=== PATIENT | female | born 1955 | race Caucasian/White ===

== ENCOUNTER 2020-04-25 00:35 | Emergency (ER) | payer MEDICARE, OTHER ==
[2020-04-25] MEDS ORDERED: Metoclopramide HCl 10 MG/2 ML VIAL ONE (01:18)
[2020-04-25] MEDS ORDERED: diphenhydrAMINE 50 MG/ML VIAL ONE (01:18)
[2020-04-25] MEDS ORDERED: Acetaminophen 500 MG TAB ONE (01:18)
[2020-04-25 01:29] LABS: #Eosinphils 0.2 thou/uL (0.0-0.7); #Lymphocytes 0.8 thou/uL (1.20-3.40); #Monocytes 0.3 thou/uL (0.11-0.59); %Basophils 0.1 % (0.0-1.0); %Eosinophils 3.3 % (0.0-10.0); %Lymphocytes 14.6 % (21.0-51.0); %Monocytes 4.9 % (0.0-10.0); %Neutrophils 77.1 % (42.0-75.0); Hemoglobin 13.4 g/dL (12.0-16.0); Mean Corpuscular HGB CONC 32.7 g/dL (32.0-36.0); Mean Corpuscular Hemoglobin 31.4 pg (27.0-31.0); Mean Corpuscular Volume 96.1 fL (78.0-98.0); Mean Platelet Volume 7.8 fL (7.4-10.4); Platelet Count 177 thou/uL (130-400); RBC Distribution Width 11.9 % (11.5-14.5); Red Blood Cell (RBC) Count 4.26 mill/uL (4.20-5.40); White Blood Cell (WBC) Count 5.2 thou/uL (4.8-10.8)
[2020-04-25 01:48] LABS: ALT (SGPT) 12 U/L (8-55); AST (SGOT) 14 U/L (5-34); Albumin 3.6 g/dL (3.4-4.8); Alkaline Phosphatase 52 U/L (40-110); Anion Gap 12 mmol/L (10-20); BUN (Urea Nitrogen) 29 mg/dL (9.8-20.1); Bilirubin, Total 0.2 mg/dL (0.2-1.2); Calc. Creatinine Clearance 0 mL/min (70-130); Carbon Dioxide 23 mmol/L (23-31); Chloride 105 mmol/L (98-107); Estimated GFR-MDRD 67; Globulin 3.2 g/dL (2.4-3.5); Glucose 94 mg/dL (80-115); Potassium 4.2 mmol/L (3.5-5.1); Protein, Total 6.8 g/dL (6.0-8.3); Sodium 136 mmol/L (136-145)
[2020-04-25 02:11] LABS: Bacteria/HPF 1+ HPF (None Seen); Bilirubin Negative (Negative); Blood, Urine 1+ (Negative); Clarity Clear (Clear); Glucose, Urine (Dipstick) Normal (Negative); Ketone, Urine Negative (Negative); Leukocyte 25 Leu/uL (Negative); Nitrite Negative (Negative); Protein, Urine (Dipstick) Negative (Neg-Trace); RBC/HPF 0-3 HPF (0-3); Specific Gravity, Urine 1.023 (1.002-1.036); Squamous Epithelial 21-50 HPF (0-3); Urobilinogen Normal mg/dL (Less than 2); WBC/HPF 0-3 HPF (0-3)
[2020-04-25] MEDS ORDERED: Dexamethasone 10 MG/ML VIAL ONE (02:41)
--- NOTE | 2020-04-25 07:34 | RAD ---
CHEST 1 VIEW: Date: 04/25/2020 INDICATION: History of COVID-positive, coughing up blood, nausea and vomiting. COMPARISON: Prior exam dated 04/16/2020. IMPRESSION: No definite consolidation, pleural effusion, or pneumothorax evident. Low lung volumes accentuate the cardiac silhouette. No pleural effusion or pneumothorax evident. No acute osseous abnormalities note d. POS: BH
== END 2020-04-25 02:48 | disposition home or self-care (01) ==
LOC: ERS 00:35
DX: U07.1 COVID-19 (principal); K21.9 Gastro-esophageal reflux disease without esophagitis; E78.00 Pure hypercholesterolemia, unspecified; E78.5 Hyperlipidemia, unspecified; I10 Essential (primary) hypertension; F32.9 Major depressive disorder, single episode, unspecified; Z79.899 Other long term (current) drug therapy
CPT/HCPCS: 36415; 71045; 80053; 81003; 81015; 83605; 84484; 85025; 85379; 86140; 93005; 94760; 96365; 96375; J1100; J1200; J2765

== ENCOUNTER 2020-04-27 14:19 | Observation (INO) | payer MEDICARE, OTHER ==
[~2020-04-27 14:19] MED LIST: Iopamidol-370 76% 500 ML 1 ML ONE
[2020-04-27 15:00] LABS: #Eosinphils 0.1 thou/uL (0.0-0.7); #Lymphocytes 0.7 thou/uL (1.20-3.40); #Monocytes 0.4 thou/uL (0.11-0.59); #Neutrophils 5.6 thou/uL (1.40-6.50); %Basophils 0.5 % (0.0-1.0); %Lymphocytes 10.3 % (21.0-51.0); %Neutrophils 82.3 % (42.0-75.0); Hemoglobin 13.7 g/dL (12.0-16.0); Mean Corpuscular HGB CONC 32.4 g/dL (32.0-36.0); Mean Corpuscular Hemoglobin 30.9 pg (27.0-31.0); Mean Corpuscular Volume 95.4 fL (78.0-98.0); Mean Platelet Volume 7.8 fL (7.4-10.4); Platelet Count 182 thou/uL (130-400); Red Blood Cell (RBC) Count 4.43 mill/uL (4.20-5.40); White Blood Cell (WBC) Count 6.8 thou/uL (4.8-10.8)
[2020-04-27 15:23] LABS: ALT (SGPT) 15 U/L (8-55); AST (SGOT) 15 U/L (5-34); Albumin 3.7 g/dL (3.4-4.8); Alkaline Phosphatase 62 U/L (40-110); Anion Gap 12 mmol/L (10-20); BUN (Urea Nitrogen) 20 mg/dL (9.8-20.1); Bilirubin, Total 0.5 mg/dL (0.2-1.2); Calc. Creatinine Clearance 0 mL/min (70-130); Calcium 8.9 mg/dL (7.8-10.44); Carbon Dioxide 28 mmol/L (23-31); Chloride 102 mmol/L (98-107); Estimated GFR-MDRD 67; Globulin 3.6 g/dL (2.4-3.5); Glucose 97 mg/dL (80-115); Potassium 4.2 mmol/L (3.5-5.1); Protein, Total 7.3 g/dL (6.0-8.3); Sodium 138 mmol/L (136-145)
[2020-04-27] MEDS ORDERED: Ondansetron PF 4 MG/2 ML Vial ONE (15:29)
--- NOTE | 2020-04-27 15:29 | RAD ---
XR Chest 1 View Portable History: Vomiting and shortness of breath. Code due to symptoms Comparison: Radiograph 2 days prior Findings: Multifocal airspace opacities throughout the lungs. No pneumothorax. No effusion. Heart siz e upper limits of normal. Impression: Commonly reported imaging findings of COVID-19 pneumonia.
--- NOTE | 2020-04-27 16:19 | CT ---
CTA Angio Chest W WO Con History: Dyspnea Comparison: Radiograph same day Findings: CT angiogram of the chest was performed after the intravenous administration of contrast. 3 -D rendering provided. No proximal segmental pulmonary arterial filling defect. No pericardial effusion. Moderate-sized slid ing hiatal hernia. Heart size is enlarged. Extensive perihilar and peripheral airspace opacities which are combination of groundglass and consol idation. No pneumothorax. No effusion. Aortic contour is nonaneurysmal. Impression: 1. Commonly reported imaging findings of COVID-19 pneumonia. 2. No pulmonary embolism. 3. Mild cardiomegaly. 4. Moderate sliding hiatal hernia.
[2020-04-27] MEDS ORDERED: Acetaminophen 500 MG TAB ONE (18:31)
[2020-04-27] MEDS ORDERED: Aspirin Chewable 81 MG TAB ONE (18:31)
[2020-04-27 19:05] LABS: Troponin I 0.016 ng/mL (< 0.028)
--- NOTE | 2020-04-27 19:19 | PDOC.FPRHP ---
- History of Present Illness Chief Complaint: SOB History of Present Illness: This is a 64 yo female with a pmh of HTN and depression who presents to the ER for the second time this week with a cc of SOB, nausea, and vomiting. She reports she first began having symptoms on 04/12 and was diagnosed at that time. Since then, she reports that she has had progressive worsening SOB, nausea , and vomiting. She is unable to quantify her vomiting, but it has been minimal. She also reports decreased PO intake. She states she has a non- productive cough. She states her just recovered from COVID and an empyema. At baseline, she is independent, walks on her own, and is quite active. ED Course: Tylenol 1g NS 2L bolus Aspirin 324mg Zofran 4mg - Allergies/Adverse Reactions Allergies Allergy/AdvReac Type Severity Reaction Status Date / Time No Known Allergies Allergy Verified 12/18/19 21:01 - Home Medications Medication Instructions Recorded Confirmed Type Albuterol Sulfate 1 puff INH Q4H PRN 04/27/20 04/27/20 History Aspirin 325 mg PO DAILY 04/27/20 04/27/20 History Benzonatate 1 tab PO TID PRN 04/27/20 04/27/20 History Doxazosin Mesylate [Cardura] 4 mg PO DAILY 04/27/20 04/27/20 History Krill/York-3/DHA/EPA/Lipids 350 mg PO DAILY 04/27/20 04/27/20 History [Krill Oil 350 mg Softgel] Sertraline HCl 150 mg PO DAILY 04/27/20 04/27/20 History Simvastatin 20 mg PO HS 04/27/20 04/27/20 History - History PMHx:HTN, depression, HLD, GERD, OA PSHx: Bilateral cataract, Bilateral TKR, right bonionectomy FHx: non contributory Social: Denies DRU - Review of Systems General: reports: fever/chills, weight/appetite/sleep changes, fatigue Eyes: denies: eye pain, vision changes ENT: denies: nasal congestion, rhinorrhea Respiratory: reports: cough, shortness of breath. denies: congestion, exercise intolerance Cardiovascular: reports: chest pain (worse with). denies: palpitation, edema, paroxysmal nocturnal dyspnea Gastrointestinal: reports: nausea, vomiting, abdominal pain (mild). denies: diarrhea, constipation Genitourinary: denies: incontinence, dysuria Skin: denies: rashes, lesions, jaundice Musculoskeletal: denies: pain, tenderness, stiffness Neurological: denies: numbness, syncope Psychological: reports: anxiety, depression - Vital signs BP: 108/64 HR: 59 RR: 22 Tmax: 100.0 Pox: 97% on ra Wt: 104 kg - Physical Exam Constitutional: NAD, awake, alert and oriented, well developed HEENT: PERRLA, EOMI, grossly normal vision, grossly normal hearing, MMM Neck: FROM, trachea midline Chest: no-tender to palpation Heart: RRR, normal S1/S2, pulses present, no edema, other (2/6 systolic murmur) Lungs: no respiratory distress, other (fair air movement, diffuse rhonci) Abdomen: soft, non-tender, bowel sounds present Musculoskeletal: normal structure, normal tone, ROM grossly normal Neurological: no focal deficit, CN II-XII intact Skin: good turgor, capillary refill <2 seconds Heme/Lymphatic: no unusual bruising or bleeding Psychiatric: normal mood and affect, good judgment and insight FMR H&P: Results - Labs Result Diagrams: 04/28/20 04:58 04/28/20 04:58 Lab results: WBC 6.8 thou/uL (4.8-10.8) 04/27/20 14:49 Hgb 13.7 g/dL (12.0-16.0) 04/27/20 14:49 Hct 42.3 % (36.0-47.0) 04/27/20 14:49 MCV 95.4 fL (78.0-98.0) 04/27/20 14:49 Plt Count 182 thou/uL (130-400) 04/27/20 14:49 Neutrophils % 82.3 % (42.0-75.0) H 04/27/20 14:49 Sodium 138 mmol/L (136-145) 04/27/20 14:49 Potassium 4.2 mmol/L (3.5-5.1) 04/27/20 14:49 Chloride 102 mmol/L (98-107) 04/27/20 14:49 Carbon Dioxide 28 mmol/L (23-31) 04/27/20 14:49 BUN 20 mg/dL (9.8-20.1) 04/27/20 14:49 Creatinine 0.85 mg/dL (0.6-1.1) 04/27/20 14:49 Glucose 97 mg/dL (80-115) 04/27/20 14:49 Lactic Acid 0.8 mmol/L (0.5-2.2) 04/27/20 14:49 Calcium 8.9 mg/dL (7.8-10.44) 04/27/20 14:49 Total Bilirubin 0.5 mg/dL (0.2-1.2) 04/27/20 14:49 AST 15 U/L (5-34) 04/27/20 14:49 ALT 15 U/L (8-55) 04/27/20 14:49 Alkaline Phosphatase 62 U/L (40-110) 04/27/20 14:49 B-Natriuretic Peptide 52.9 pg/mL (0-100) 04/27/20 14:49 Serum Total Protein 7.3 g/dL (6.0-8.3) 04/27/20 14:49 Albumin 3.7 g/dL (3.4-4.8) 04/27/20 14:49 - EKG Interpretation EKG: NSR, LVH, Inverted T waves in VII-VIII - Radiology Interpretation Chest x-ray Status: image reviewed by me, report reviewed by me (Multifocalopacities throughout the lungs) CT scan - chest Status: image reviewed by me, report reviewed by me (No PE, mild careiomegaly, moderate sliding hiatal hernia, air space opacities consistent with viral PNA) FMR H&P: A/P - Plan Covid PNA -Admit to tele obs with precautions -Pt received dexamethasone yesterday in the ER -Pending covid labs to determine abx and continue steroids Orthostatic hypotension -Diagnosed in the ER -Pt s/p 2L, likely 2/2 poor PO intake and vomiting HTN -Continue home meds Anxiety -Continue home sertraline Code: Full Prophylaxis: Lovenox 40mg BID Family: None at bedside Fluids: LR 125ml/hr Diet: HH Disposition: DC in 1-2 days PCP: LEONORA Rico Addendum - Attending - Attending Attestation Date/Time: 04/27/202057 I personally evaluated the patient and discussed the management with Dr. Hawkins I agree with the History, Examination, Assessment and Plan documented above with any addition or exceptions noted below. Patient with > 10 days of symptoms. Pos COVID19. CXR consistent with viral pneumonia pattern. No air hunger. No respiratory distress on exam. Able to speak in complete sentences. Crackles and course air movement on exam. On room air. No tachypnea. Patient very anxious and once anxious respiratory symptoms present. +Fatigue, general malaise and weakness. - Place in obs. Monitor O2 sats. Repeat CRP. + on 04/25. D-dimer elevated with negative CTA of chest for PE. Completed course of Azithromycin. Continue dexamethasone. Monitor in outpatient setting for long-term sequela. - Treat anxiety as needed. Etelvina
[2020-04-27 20:16] VITALS: BMI 36.2
[2020-04-27] MEDS ORDERED: Ondansetron ODT 4 MG TAB PO PRN (20:31)
[2020-04-27] MEDS ORDERED: Acetaminophen 650 MG Suppository PR PRN (20:31)
[2020-04-27] MEDS ORDERED: Acetaminophen 325 MG TAB PO PRN (20:31)
[2020-04-27] MEDS ORDERED: Ondansetron PF 4 MG/2 ML Vial IVP PRN (20:31)
[2020-04-27] MEDS ORDERED: Benzonatate 100 MG CAP PO PRN (20:31)
[2020-04-27] MEDS ORDERED: Calcium Carbonate 500 MG ChewTAB PO PRN (20:31)
[2020-04-27] MEDS ORDERED: Cepastat Lozenges 1 LOZ PO PRN (20:31)
[2020-04-27] MEDS: Lactated Ringer's 1,000 ML IV SCH (20:50)
[2020-04-27 21:58] LABS: Troponin I 0.017 ng/mL (< 0.028)
[2020-04-27] MEDS: Enoxaparin Sodium 40 MG/0.4 ML SYRINGE SC SCH (22:43)
[2020-04-28] MEDS: Lactated Ringer's 1,000 ML IV SCH ×2 (03:24→11:57)
[2020-04-28] MEDS ORDERED: Benzonatate 100 MG CAP PO PRN (05:05)
[2020-04-28] MEDS ORDERED: Albuterol 200 PUFF (6.7GM INHALER) INH PRN (05:05)
[2020-04-28] MEDS ORDERED: CODEINE PO PRN (05:05)
[2020-04-28] MEDS ORDERED: PROMETHAZINE HCL PO PRN (05:05)
[2020-04-28 05:17] LABS: #Eosinphils 0.1 thou/uL (0.0-0.7); #Lymphocytes 0.6 thou/uL (1.20-3.40); #Monocytes 0.4 thou/uL (0.11-0.59); #Neutrophils 6.6 thou/uL (1.40-6.50); %Eosinophils 0.7 % (0.0-10.0); %Lymphocytes 7.3 % (21.0-51.0); %Monocytes 5.6 % (0.0-10.0); %Neutrophils 86.3 % (42.0-75.0); Mean Corpuscular HGB CONC 31.7 g/dL (32.0-36.0); Mean Corpuscular Hemoglobin 30.5 pg (27.0-31.0); Mean Corpuscular Volume 96.1 fL (78.0-98.0); Mean Platelet Volume 7.7 fL (7.4-10.4); Platelet Count 163 thou/uL (130-400); Red Blood Cell (RBC) Count 3.96 mill/uL (4.20-5.40); White Blood Cell (WBC) Count 7.6 thou/uL (4.8-10.8)
[2020-04-28 05:46] LABS: ALT (SGPT) 16 U/L (8-55); AST (SGOT) 16 U/L (5-34); Albumin 3.1 g/dL (3.4-4.8); Alkaline Phosphatase 52 U/L (40-110); Anion Gap 11 mmol/L (10-20); BUN (Urea Nitrogen) 18 mg/dL (9.8-20.1); Bilirubin, Total 0.4 mg/dL (0.2-1.2); Calc. Creatinine Clearance 114 mL/min (70-130); Calcium 7.9 mg/dL (7.8-10.44); Carbon Dioxide 26 mmol/L (23-31); Chloride 105 mmol/L (98-107); Estimated GFR-MDRD 75; Globulin 3.1 g/dL (2.4-3.5); Glucose 91 mg/dL (80-115); Potassium 4.1 mmol/L (3.5-5.1); Protein, Total 6.2 g/dL (6.0-8.3); Sodium 138 mmol/L (136-145)
--- NOTE | 2020-04-28 07:33 | PDOC.FM ---
- Subjective Subjective: Pt c/o back pain she states she is breathing well and without difficulty. occasional cough. 99-97% O2 sat on RA overnight. no acute overnight events. - Objective MAR Reviewed: Yes Vital Signs & Weight: Vital Signs (12 hours) Temp Pulse Resp BP Pulse Ox 04/28/20 03:35 99.2 F 60 21 H 112/56 L 97 04/27/20 20:31 97 04/27/20 20:16 99.6 F 57 L 16 109/53 L 99 Weight Weight 98.838 kg Result Diagrams: 04/28/20 04:58 04/28/20 04:58 Phys Exam - Physical Examination Constitutional: NAD HEENT: moist MMs, sclera anicteric Neck: supple, full ROM Respiratory: no wheezing, no rales, no rhonchi, clear to auscultation bilateral Cardiovascular: RRR, no significant murmur, no rub Gastrointestinal: soft, non-tender, no distention, positive bowel sounds Musculoskeletal: no edema Neurological: non-focal, moves all 4 limbs Psychiatric: normal affect, A&O x 3 Dx/Plan (1) Pneumonia due to COVID-19 virus Code(s): U07.1 - COVID-19; J12.89 - OTHER VIRAL PNEUMONIA Status: Acute (2) HTN (hypertension) Code(s): I10 - ESSENTIAL (PRIMARY) HYPERTENSION Status: Acute (3) MDD (major depressive disorder) Code(s): F32.9 - MAJOR DEPRESSIVE DISORDER, SINGLE EPISODE, UNSPECIFIED Status : Acute - Plan Plan: Covid PNA -Admit to tele obs with precautions -Pt received dexamethasone yesterday in the ER, will not continue due to normal vitals and no resp distress. -D-dimer: 1.24> 0.81 - crp: 11.9 - LDH 214 - Ferritin: 183 Orthostatic hypotension -Diagnosed in the ER -Pt s/p 2L, likely 2/2 poor PO intake and vomiting HTN -Continue home meds Anxiety -Continue home sertraline Hiatal hernia - incidentally found on CTA chest. - moderately sliding hiatal hernia. - f/u outpt. Code: Full Diet: HH Disposition:stable, D-Dimer marker improved. d/c home with precautions and close PCP f/u. PCP: LEONORA Rico Addendum - Attending - Attending Attestation Date/Time: 04/28/20 [id number] I personally evaluated the patient and discussed the management with Dr. Norman. I agree with the History, Examination, Assessment and Plan documented above with any addition or exceptions noted below. Patient is satting normally on room air. She complains of back pain that started when lying in the hospital bed. Respiratory status stable in the setting of covid. Will discharge home with close outpt follow-up and precautions.
[2020-04-28] MEDS ORDERED: Aspirin 325 MG TAB PO SCH (08:00)
[2020-04-28] MEDS: Enoxaparin Sodium 40 MG/0.4 ML SYRINGE SC SCH (08:30)
[2020-04-28] MEDS ORDERED: Fish Oil 1,000 MG CAP PO SCH (09:00)
[2020-04-28] MEDS ORDERED: Doxazosin Mesylate 4 MG TAB PO SCH (09:00)
[2020-04-28 12:22] VITALS: BP 115/56; TEMP 98.4
[2020-04-28] MEDS ORDERED: Atorvastatin Calcium 10 MG TAB PO SCH (21:00)
--- NOTE | 2020-04-30 07:03 | DIS ---
DATE OF ADMISSION: 04/27/2020 DATE OF DISCHARGE: 04/28/2020 RESIDENT: Emilia Norman DO ADMITTING ATTENDING: Dr. Hart DISCHARGE ATTENDING: Dr. Stewart. CONSULTS: None. PROCEDURES: CTA chest which showed bilateral pneumonia consistent with a viral process and negative for pulmonary embolism. Also incidentally showed a moderate sliding hiatal hernia. Chest x-ray, which was consistent with commonly reported imaging findings of COVID-19. No effusions. No pneumothorax. Heart size upper limits of normal. DIAGNOSES: 1. COVID pneumonia, not requiring oxygen. 2. Orthostatic hypotension. 3. Hypertension. 4. Anxiety. 5. Hiatal hernia. DISCHARGE MEDICATIONS: 1. Albuterol 1 puff inhaled q.4 hours p.r.n. 2. Aspirin 325 mg p.o. daily. 3. Benzonatate 200 mg p.o. t.i.d. for cough. 4. Doxazosin 4 mg p.o. daily. 5. Krill oil one softgel p.o. daily. 6. Sertraline 150 mg p.o. daily. 7. Simvastatin 20 mg p.o. at bedtime. HISTORY OF PRESENT ILLNESS/HOSPITAL COURSE: Ms. Tyson is a 64-year-old female, who was diagnosed with coronavirus on 04/12, coming to the emergency department due to worsening shortness of breath and also decreased p.o. intake, feeling dehydrated. Her oxygen saturation was 97% on room air upon admission. The patient had repeat labs. On admission, her D-dimer was 1.28, the next day it down trended to 0.81. This is the best prognostic factor for coronavirus and is showing downtrend. Ferritin was 183. LDH was slightly elevated at 214. CRP 11.9, however, this was increased from 04/25 where it was 3.5. The patient did not require any oxygen while observed overnight, saturating 99% to 97% on room air with 21 to 16 respiratory rate, T-max was 100.1, but no true fever. The patient's white blood cell count was 7.6 on day of admission with a normal chemistry panel. Procal was 0.02, which is considered low risk for bacterial pneumonia and antibiotics not indicated in this patient. The patient is likely having pneumonia from her coronavirus status and not requiring any oxygen; therefore, the patient was not requiring any inpatient treatment. The patient is agreeable to discharge. Her wanted her to stay in the hospital because she was coughing. It was explained to the that cough is a normal physiologic response to having a viral illness, particularly viral pneumonia. Return ER precautions were given to the patient and the of worsening shortness of breath in case her viral pneumonia worsens. We told them that we would be happy to see her for re-evaluation at any point in time if they believe that she is worsening. It is my recommendation that she have close followup with [facility], primary care physician in the next 2 to 3 days and then see her weekly to monitor her respiratory status to reassure the patient, make sure that she is doing well and not requiring any inpatient treatment. DISPOSITION: Stable upon discharge, not requiring any oxygen with stable vital signs overnight. DISCHARGE INSTRUCTIONS: 1. Location: To home. 2. Diet: Heart healthy. 3. Activity: As tolerated. 4. Followup: Follow up with primary care physician, [facility] within 2 to 3 days. Job ID: [id number]
== END 2020-04-28 12:50 | disposition home or self-care (01) ==
LOC: ERS 14:19 → 2SW 18:36
PROVIDERS: ADMIT Family Medicine; ATTEND Family Medicine
DX: U07.1 COVID-19 (principal); J12.89 Other viral pneumonia; I95.1 Orthostatic hypotension; I10 Essential (primary) hypertension; F41.9 Anxiety disorder, unspecified; K44.9 Diaphragmatic hernia without obstruction or gangrene; F32.9 Major depressive disorder, single episode, unspecified; E78.5 Hyperlipidemia, unspecified; K21.9 Gastro-esophageal reflux disease without esophagitis; M19.90 Unspecified osteoarthritis, unspecified site; Z79.82 Long term (current) use of aspirin; Z79.899 Other long term (current) drug therapy
CPT/HCPCS: 71045; 71275; 80053 ×2; 82728; 83605; 83615; 83880; 84145; 84484 ×2; 85025 ×2; 85379 ×2; 86140; 93005; 94760; 96361 ×3; 96372 ×2; 96374; 99285; G0378 ×3; 36415; J1650; J2405; Q9967

== ENCOUNTER 2020-09-25 08:20 | Outpatient (CLI) | payer MEDICARE ==
--- NOTE | 2020-09-25 10:08 | BD ---
BONE DENSITOMETRY: INDICATION: Postmenopausal screening. FINDINGS: Lumbar Spine: BMD (g/cm2) L1 0.967 T-Score: -0.2 L2 1.200 T-Score: 1.6 L3 1.170 T-Score: 0.8 L4 1.102 T-Score: 0.4 L1-L4 1.105 T-Score: 0.5 Femoral Neck: 0.709 T-Score: -1.3 Total Femur: 0.979 T-Score: 0.3 Impression: 1. bone mineral density of the lumbar spine within normal range. 2. Bone mineral density of the femoral neck indicates osteopenia. Ten-year fracture risk: Major osteoporotic fracture: 7.7%. Hip fracture: 0.6%. POS: AGW
== END 2020-09-25 08:21 | disposition home or self-care (01) ==
LOC: BICMAMMO 08:20
PROVIDERS: ATTEND Student in an Organized Health Care Education/Training Program
DX: Z13.820 Encounter for screening for osteoporosis (principal); Z78.0 Asymptomatic menopausal state; M85.859 Other specified disorders of bone density and structure, unspecified thigh
CPT/HCPCS: 77080

== ENCOUNTER 2020-10-04 13:56 | Outpatient (CLI) | payer MEDICARE ==
--- NOTE | 2020-10-05 08:26 | MMO ---
Bilateral MAMMO Bilat Screen [facility]. CLINICAL HISTORY: Patient is 65 years old and is seen for screening. The patient has the following family history of breast cancer: maternal grandmother. The patient has no personal history of cancer. The patient has a history of left Excisional Biopsy in - cyst. VIEWS: The views performed were: bilateral craniocaudal with tomosynthesis and bilateral mediolateral oblique with tomosynthesis. FILMS COMPARED: The present examination has been compared to prior imaging studies performed at [facility] on 05/24/2019, at [facility] on 03/08/2015 and 03/27/2016, and at [facility] on 04/14/2017. This study has been interpreted with the assistance of computer-aided detection. MAMMOGRAM FINDINGS: There are scattered fibroglandular densities. There are no suspicious masses, suspicious calcifications, or new areas of architectural distortion. IMPRESSION: THERE IS NO MAMMOGRAPHIC EVIDENCE OF MALIGNANCY. A ROUTINE FOLLOW-UP MAMMOGRAM IN 1 YEAR IS RECOMMENDED. THE RESULTS OF THIS EXAM WERE SENT TO THE PATIENT. ACR BI-RADS Category 1 - Negative MAMMOGRAPHY NOTE: 1. A negative mammogram report should not delay a biopsy if a dominant of clinically suspicious mass is present. 2. Approximately 10% to 15% of breast cancers are not detected by mammography. 3. Adenosis and dense breasts may obscure an underlying neoplasm. Reported by: BRODIE CHOWDHURY MD Electonically Signed: [id number]
== END 2020-10-04 13:57 | disposition home or self-care (01) ==
LOC: BICMAMMO 13:56
PROVIDERS: ATTEND Student in an Organized Health Care Education/Training Program
DX: Z12.31 Encounter for screening mammogram for malignant neoplasm of breast (principal); Z80.3 Family history of malignant neoplasm of breast; Z91.89 Other specified personal risk factors, not elsewhere classified
CPT/HCPCS: 77063; 77067

== ENCOUNTER 2021-08-12 01:31 | Emergency (ER) | payer MEDICARE ==
[2021-08-12 02:00] LABS: Bacteria/HPF None Seen HPF (None Seen); Bilirubin Negative (Negative); Blood, Urine 1+ (Negative); Clarity Clear (Clear); Glucose, Urine (Dipstick) Normal (Negative); Ketone, Urine Negative (Negative); Leukocyte 500 Leu/uL (Negative); Nitrite Negative (Negative); Protein, Urine (Dipstick) Negative (Neg-Trace); RBC/HPF 0-3 HPF (0-3); Specific Gravity, Urine 1.024 (1.002-1.036); Urobilinogen Normal mg/dL (Less than 2)
== END 2021-08-12 03:31 | disposition home or self-care (01) ==
LOC: ERS 01:31
DX: N30.00 Acute cystitis without hematuria (principal); L25.9 Unspecified contact dermatitis, unspecified cause; K21.9 Gastro-esophageal reflux disease without esophagitis; E78.5 Hyperlipidemia, unspecified; I10 Essential (primary) hypertension
CPT/HCPCS: 81003; 81015; 87086; 99284

== ENCOUNTER 2021-10-08 15:44 | Outpatient (CLI) | payer MEDICARE | END 2021-10-08 15:45 | disposition home or self-care (01) | LOC: BICMAMMO 15:44 | PROVIDERS: ATTEND Student in an Organized Health Care Education/Training Program | DX: Z12.31 Encounter for screening mammogram for malignant neoplasm of breast (principal); N64.89 Other specified disorders of breast; Z80.3 Family history of malignant neoplasm of breast | CPT/HCPCS: 77063; 77067 ==

== ENCOUNTER 2021-10-15 14:03 | Outpatient (CLI) | payer MEDICARE | END 2021-10-15 14:04 | disposition home or self-care (01) | LOC: BICMAMMO 14:03 | PROVIDERS: ATTEND Student in an Organized Health Care Education/Training Program | DX: R92.2 Inconclusive mammogram (principal) | CPT/HCPCS: 77065; G0279 ==

== ENCOUNTER 2022-11-27 14:55 | Outpatient (CLI) | payer MEDICARE | END 2022-11-27 14:56 | disposition home or self-care (01) | LOC: BICMAMMO 14:55 | PROVIDERS: ATTEND Student in an Organized Health Care Education/Training Program | DX: Z12.31 Encounter for screening mammogram for malignant neoplasm of breast (principal); R92.1 Mammographic calcification found on diagnostic imaging of breast; Z80.3 Family history of malignant neoplasm of breast | CPT/HCPCS: 77063; 77067 ==

== ENCOUNTER 2023-12-10 13:42 | Outpatient (CLI) | payer MEDICARE | END 2023-12-10 13:43 | disposition home or self-care (01) | LOC: BICMAMMO 13:42 | PROVIDERS: ATTEND Student in an Organized Health Care Education/Training Program | DX: Z12.31 Encounter for screening mammogram for malignant neoplasm of breast (principal); Z80.3 Family history of malignant neoplasm of breast | CPT/HCPCS: 77063; 77067 ==

== ENCOUNTER 2024-08-02 15:00 | Outpatient (CLI) | payer MEDICARE | END 2024-08-02 15:01 | disposition home or self-care (01) | LOC: BICMAMMO 15:00 | PROVIDERS: ATTEND Student in an Organized Health Care Education/Training Program | DX: Z78.0 Asymptomatic menopausal state (principal); M85.852 Other specified disorders of bone density and structure, left thigh | CPT/HCPCS: 77080 ==

== ENCOUNTER 2025-05-15 14:29 | Emergency (ER) | payer MEDICARE ==
[2025-05-15 15:20] LABS: #Basophils 0.03 10x3/uL (0.0-0.2); #Eosinophils 0.15 10x3/uL (0.0-0.7); #Monocytes 0.39 10x3/uL (0.11-0.59); #Neutrophils 3.72 10x3/uL (1.40-6.50); %Basophils 0.6 % (0.0-1.0); %Eosinophils 2.8 % (0.0-10.0); %Lymphocytes 18.7 % (21.0-51.0); %Monocytes 7.4 % (0.0-10.0); %Neutrophils 70.1 % (42.0-75.0); Hematocrit 33.9 % (36.0-47.0); Hemoglobin 10.7 g/dL (12.0-16.0); Mean Corpuscular Hemoglobin 28.7 pg (27.0-31.0); Mean Corpuscular Volume 90.9 fL (78.0-98.0); Platelet Count 194 10x3/uL (130-400); Red Blood Cell (RBC) Count 3.73 mill/uL (4.20-5.40); White Blood Cell (WBC) Count 5.30 10x3/uL (4.8-10.8)
[2025-05-15 15:39] LABS: ALT (SGPT) 9 U/L (Less than 34); AST (SGOT) 16 U/L (11-34); Albumin 3.3 g/dL (3.1-4.5); Alkaline Phosphatase 49 U/L (40-110); Anion Gap 12 mmol/L (10-20); BUN (Urea Nitrogen) 28 mg/dL (9.8-20.1); Bilirubin, Total 0.2 mg/dL (0.3-1.2); Calc. Creatinine Clearance 0 mL/min (70-130); Calcium 8.3 mg/dL (7.8-10.44); Carbon Dioxide 25 mmol/L (23-31); Chloride 107 mmol/L (98-107); Globulin 3.3 g/dL (2.4-3.5); Glucose 96 mg/dL (80-115); Potassium 3.9 mmol/L (3.5-5.1); Sodium 140 mmol/L (136-145)
[2025-05-15] MEDS ORDERED: Boostrix 0.5 ML (Tdap) VIAL (>/=7 yrs of age) ONE (15:39)
== END 2025-05-15 17:05 | disposition home or self-care (01) ==
LOC: ERS 14:29
DX: S01.111A Laceration without foreign body of right eyelid and periocular area, initial encounter (principal); S80.01XA Contusion of right knee, initial encounter; E78.5 Hyperlipidemia, unspecified; I10 Essential (primary) hypertension; Z23 Encounter for immunization; Z79.899 Other long term (current) drug therapy; W17.89XA Other fall from one level to another, initial encounter
CPT/HCPCS: 70450; 80053; 85025; 90471; 90715; 93005